=== PATIENT | female | born 1980 | race Caucasian/White ===

== ENCOUNTER 2021-09-11 21:37 | Emergency (ER) | payer OTHER, MEDICAID ==
[~2021-09-11] VITALS: Ht 180.3 cm; Wt 73.5 kg
[~2021-09-11 21:37] MED LIST: APHEN325 MG; BIRTH CONTROL; KEFLEX500 MG PO; VALTREX1000 MG PO
[2021-09-11] MEDS ORDERED: IBUPROFEN 600600 M1 PO (22:30)
[2021-09-11] MEDS ORDERED: ULTRAM 50MG TAB50 MG PO (22:30)
[2021-09-11 22:43] VITALS: BP 128/68
== END 2021-09-11 22:43 | disposition home or self-care (01) ==
LOC: M.ERS 21:37
DX: S93.401A Sprain of unspecified ligament of right ankle, initial encounter (principal); S83.92XA Sprain of unspecified site of left knee, initial encounter; Z98.890 Other specified postprocedural states; Z88.5 Allergy status to narcotic agent; Z88.6 Allergy status to analgesic agent; Z88.8 Allergy status to other drugs, medicaments and biological substances; Z91.040 Latex allergy status; W18.30XA Fall on same level, unspecified, initial encounter; Y93.01 Activity, walking, marching and hiking; Y92.89 Other specified places as the place of occurrence of the external cause; Y99.8 Other external cause status